=== PATIENT | female | born 1975 | race Caucasian/White ===

== ENCOUNTER 2021-08-14 07:38 | Outpatient (CLI) | payer BC, MEDICAID, SELFPAY ==
--- NOTE | 2021-08-14 07:53 | US_ITS ---
WS: [id number] RIGHT UPPER QUADRANT ULTRASOUND HISTORY: ABD PAIN COMPARISON: None available. Liver: 15.2 cm in length. Normal size liver. No bile duct dilatation or mass. Gallbladder: Normally distended gallbladder. No stones. Gallbladder wall is very minimally and diffus марина thickened and there is a very small amount of sludge within the gallbladder lumen. CBD: 0.3 cm Pancreas: Normal size and echogenicity. Right kidney: 10.0 cm in length. Normal size and echogenicity. No hydronephrosis or mass. Aorta and IVC: Unremarkable abdominal aorta and IVC. No ascites. US/US gall bladder [id number] IMPRESSION: 1. Very minimal diffuse gallbladder wall thickening. No cholelithiasis. 2. Very small amount of sludge within the gallbladder. 3. No bile duct dilatation.
== END 2021-08-14 07:39 | disposition home or self-care (01) ==
LOC: RAD 07:41
PROVIDERS: PCP Nurse Practitioner Family; Visit Provider Nurse Practitioner Family
DX: R10.9 Unspecified abdominal pain (principal)
CPT/HCPCS: 76705

== ENCOUNTER → 2021-10-26 12:56 | Outpatient (BNVA) | payer BC, SELFPAY | PROVIDERS: PCP Nurse Practitioner Family; Visit Provider Surgery | DX: Z11.52 Encounter for screening for COVID-19 (principal) | CPT/HCPCS: 87635 ==

== ENCOUNTER 2021-11-26 06:40 | Day surgery (SDC) | payer BC, MEDICAID, SELFPAY ==
[2021-10-28 10:00] VITALS: BMI 27.6
[2021-11-26] VITALS (12 sets, daily range): BP systolic 102–144; BP diastolic 77–103; PULSE 61–95; RESP 16–20; TEMP 36.2–37.1; O2SAT 91–100
--- NOTE | 2021-11-26 06:52 | P.HP_ITS ---
Same Day Surgery H&P Indication for Procedure/HPI DATE OF PROCEDURE: November 26, 2021 CHIEF COMPLAINT/INDICATIONFOR SURGICAL PROCEDURE: lap possible open josefa PREOP DIAGNOSIS: Cholelithiasis PLANNED PROCEDURE: Operation Date: 11/26/21 08:00 Proposed Procedures p Laparoscopic Cholecystectomy(Not Applicable) - Miah Smith MD Medications/Allergies* Home Medications Medication Instructions Recorded Confirmed Type naltrexone 8 mg-bupropion 90 mg 1 tab PO QAM 08/18/21 10/28/21 History tablet,extended release (Contrave) Allergies/Adverse Reactions Allergy/AdvReac Type Severity Reaction Status Date / Time Penicillins Allergy ALGY-Hives Verified 10/28/21 09:59 Pertinent History/Comorbid Conditions* Surgical History (Updated 08/18/21 @ 08:20 by Miah Smith MD) History of tubal ligation 2014 Social History Smoking and tobacco status: never smoked Alcohol intake: current Alcohol intake frequency: few times a week Household members: children Pertinent Exam Findings alert, oriented x 3 and regular rate & rhythm Recommendations Surgery/Procedure today Coding Level of Care Code 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
--- NOTE | 2021-11-26 07:07 | P.ANESASSM_ITS ---
Pre-Anesthetic Assessment Height/Weight: Height 1.73 m Weight 82.554 kg Preop Diagnosis: Cholelithiasis Operation Date: 11/26/21 08:00 Proposed Procedures p Laparoscopic Cholecystectomy(Not Applicable) - Miah Smith MD Familial anesthetic complications: none Was Beta Rajesh taken within 24 hours: N/A Was Clonidine taken within 24 hours: N/A Last intake: > 8 hrs Social No alcohol and No tobacco Exam alert, oriented x 3, clear to auscultation bilaterally and regular rate & rhythm Airway Mallampati: Class I Dentition: full Anesthetic Plan ASA status: 2 Anesthesia: General Medications/Allergies Home Medications Medication Instructions Recorded Confirmed Last Taken Type naltrexone 8 mg-bupropion 90 mg 1 tab PO QAM 08/18/21 10/28/21 10/27/21 History tablet,extended release (Contrave) Allergies Allergy/AdvReac Type Severity Reaction Status Date / Time Penicillins Allergy ALGY-Hives Verified 10/28/21 09:59 [facility] Anesthesia Surgical History (Updated 08/18/21 @ 08:20 by Miah Smith MD) History of tubal ligation 2014 Social History (Updated 08/18/21 @ 08:17 by Jillian Dominguez) Smoking and tobacco status: never smoked Alcohol intake: current Alcohol intake frequency: few times a week Household members: children Female Reproductive History Date of last menstrual period: 09/23/21 Data Anesthesia Cardiac Studies: No Data to Display
[2021-11-26] MEDS: sodium chloride 0.9% 1,000 ML 30 ML IV (07:25)
[2021-11-26] MEDS: scopolamine 1.5 Patch 1 PATCH TRANSDERMA (07:25)
[2021-11-26] MEDS: ciprofloxacin 400 MG/200 ML PREMIX 200 MG IV (08:10)
[2021-11-26] MEDS: HYDROmorphone 1 mg/mL INJ 1 mL 0.5 MG IVP ×2 (09:22→09:39)
[2021-11-26] MEDS: HYDROcodone-acetaminophen 5-325 mg Tablet 1 TAB PO (10:14)
[2021-11-26] MEDS: ondansetron 2 mg/ML SDV 2 mL 4 MG IVP (10:19)
[2021-11-26] MEDS: diphenhydrAMINE 50 mg/mL SDV 1mL 12.5 MG IVP (10:50)
--- NOTE | 2021-11-26 11:08 | PM.OP ---
Operative Report Date of procedure: November 26, 2021 Pre-op diagnosis: Cholelithiasis Post-op diagnosis: Cholelithiasis Omentum and body of stomach adherent to the gallbladder Procedure done: Laparoscopic cholecystectomy Specimens removed/disposition: Gallbladder Surgeon: Miah Smith Anesthesia: General Condition: stable Disposition: PACU Procedure: The patient was taken to the operating room and was intubated under general anesthesia. After the antibiotic had been administered, the abdomen was prepped and draped in a sterile manner. Using a #15 blade, a 1 centimeter infraumbilical curvilinear incision was made and using an open Lucas technique the peritoneal cavity was entered. A 10 millimeter port was placed and 15 millimeters of pneumoperitoneum was created. A 10 millimeter, 30 degrees scope was then introduced. Three 5 millimeter ports were placed in the epigastric, midclavicular and the anterior axillary line two fingerbreadths below the costal margin on the right side under the direct visualization. Ratcheted forceps were introduced into the lateral most port and was used to retract the fundus of the gallbladder cephalad and using forceps the infundibulum of the gallbladder was retracted laterally. The omentum and the body of the stomach was adherent to the gallbladder which is slowly peeled away. Using L-hook cautery the peritoneum overlying the Calot's triangle was opened medially and laterally until the cystic duct and the cystic artery were skeletonized. Dissection was carried along the body of the gallbladder and after ensuring critical view of safety, 4 clips applied on the cystic duct and 3 clips applied on the cystic artery and cut leaving, 3 clips on the remaining portion of the duct and 2 clips on the remaining portion of the artery. The rest of the gallbladder was dissected off the liver using L-hook cautery. There was no bleeding or bile leaking noted from the gallbladder fossa and the clips appeared to be in place. An EndoCatch bag was introduced to remove the gallbladder. All the ports were removed under direct visualization and there was no bleeding noted from the port sites. The fascia of the umbilicus was closed using [id number] Vicryl sutures and the subcutaneous tissue was approximated using 3-0 Vicryl sutures. The skin at all four ports were closed using 4-0 Monocryl and Dermabond. A total of 10 millimeters of 0.5% Marcaine was infiltrated around the port sites. The patient was stable throughout the procedure.
--- NOTE | 2021-11-26 14:19 | ANE.PACU2 ---
Inpatient post-anesthesia follow up: Airway intact: Yes Vital signs: Temperature 98.0 F Pulse Rate 76 Respiratory Rate 16 Blood Pressure 102/77 Pulse Oximetry 95 Oxygen Delivery Me thod Room Air Oxygen Flow Rate 5 Fraction of Inspir ed Oxygen Hydration adequate: Yes Nausea and vomiting: Yes Pain level: 2 Mental status: Baseline
== END 2021-11-26 11:38 | disposition home or self-care (01) ==
PROVIDERS: PCP Nurse Practitioner Family; Visit Provider Surgery
PROC: 0FT44ZZ Resection of Gallbladder, Percutaneous Endoscopic Approach (ICD-10-PCS; CPT 47562; principal; 2021-11-26 08:00)
DX: K81.1 Chronic cholecystitis (principal)
CPT/HCPCS: 47562; 81025; 88304; 96374; 96375; J0744; J1100; J1170; J1200; J2250; J2370; J2405; J2704; J2710; J3010; J3490; J7030

== ENCOUNTER 2023-12-08 09:10 | Outpatient (CLI) | payer BC, MEDICAID, SELFPAY ==
--- NOTE | 2023-12-08 09:21 | MM_ITS ---
WS: [id number] SCREENING DIGITAL TOMOSYNTHESIS MAMMOGRAM WITH CAD HISTORY: SCREENING COMPARISON: None available. Bilateral CC and MLO with tomosynthesis views submitted. Synthetic mammography reviewed. Computer aid ed detection analyzed. Breast composition: There are scattered areas of fibroglandular density. No suspicious masses, microc alcifications or architectural distortion. IMPRESSION: MM/[place] [id number] BI-RADS: 1-Negative FOLLOW UP: 1 Year Follow-up
== END 2023-12-08 09:11 | disposition home or self-care (01) ==
PROVIDERS: PCP Nurse Practitioner Family; Visit Provider Family Medicine
DX: Z12.31 Encounter for screening mammogram for malignant neoplasm of breast (principal); R92.323 Mammographic fibroglandular density, bilateral breasts
CPT/HCPCS: 77063; 77067